=== PATIENT | female | born 1985 | race Caucasian/White ===

== ENCOUNTER 2016-11-30 15:52 | Emergency (ER) | payer OTHER ==
[2016-11-30 16:35] VITALS: BP 126/78
--- NOTE | 2016-11-30 17:06 | UC ---
Throat Pain/Nasal Raoul HPI - HPI Summary HPI Summary: Pt has had deep L ear pain starting 2+ months ago, is seeing Dr. Cheek for it. So far no indications of organic problem. Noticed worsening pain behind/ below L ear, feels a little swollen; looked in throat today and noticed "two spots on L tonsil and one on the R." Has school-aged child at home. - History of Current Complaint Chief Complaint: UCRespiratory Stated Complaint: WHITE SPOTS ON THROAT Time Seen by Provider: 11/30/16 16:44 Hx Obtained From: Patient Hx Last Menstrual Period: 11/25/16 ?: No Onset/Duration: Gradual Onset, Lasting Days Severity: Mild Cough: None Associated Signs & Symptoms: Negative: Nasal Discharge, Fever, Vomiting, Rash - Allergies/Home Medications Allergies/Adverse Reactions: Allergies Allergy/AdvReac Type Severity Reaction Status Date / Time No Known Allergies Allergy Verified 11/30/16 16:35 Home Medications: Home Medications NK [No Home Medications Reported] 11/30/16 [History Confirmed 11/30/16] PMH/Surg Hx/FS Hx/Imm Hx Endocrine History Of: Denies: Diabetes, Thyroid Disease Cardiovascular History Of: Denies: Cardiac Disorders, Hypertension, Pacemaker/ICD Respiratory History Of: Denies: COPD, Asthma GI/ History Of: Denies: Ulcer, Renal Disease - Surgical History Surgical History: Yes Surgery Procedure, Year, and Place: TONSILECTOMY,. LEEP SURGERY - Family History Known Family History: Positive: Hypertension - Social History Lives: With Family Alcohol Use: Occasionally Substance Use Type: None Smoking Status (MU): Former Smoker Length of Time of Smoking/Using Tobacco: 5 years When Did the Patient Quit Smoking/Using Tobacco: 7 years ago - Immunization History Most Recent Influenza Vaccination: sep 2016 Review of Systems Constitutional: Negative Skin: Negative Eyes: Negative ENT: Ear Ache Respiratory: Negative Cardiovascular: Negative Gastrointestinal: Negative Genitourinary: Negative Motor: Negative Neurovascular: Negative Musculoskeletal: Negative Neurological: Negative Psychological: Negative All Other Systems Reviewed And Are Negative: Yes Physical Exam Triage Information Reviewed: Yes Appearance: Well-Appearing, No Pain Distress, Well-Nourished Vital Signs: Initial Vital Signs Temp 98.9 F 11/30/16 16:27 Pulse 82 11/30/16 16:27 Resp 16 11/30/16 16:27 BP 126/78 11/30/16 16:27 Pulse Ox 100 11/30/16 16:27 Vital Signs Reviewed: Yes Eye Exam: Normal Eyes: Positive: Conjunctiva Clear ENT: Positive: Tonsillar exudate - very small white areas on both tonsils, not consistent with exudate. More consistent with debris.. Negative: Pharyngeal erythema Dental Exam: Normal Neck exam: Normal Neck: Positive: Supple, Nontender, No Lymphadenopathy Respiratory Exam: Normal Respiratory: Positive: Chest non-tender, Lungs clear, Normal breath sounds, No respiratory distress, No accessory muscle use Cardiovascular Exam: Normal Cardiovascular: Positive: RRR, No Murmur Musculoskeletal Exam: Normal Neurological Exam: Normal Psychological Exam: Normal Skin Exam: Normal Throat Pain/Nasal Course/Dx - Differential Dx/Diagnosis Provider Diagnoses: L ear ache Discharge - Discharge Plan Condition: Stable Disposition: HOME Patient Education Materials: Earache (ED) Referrals: Franc Campbell MD [Primary Care Provider] - Angel Cheek MD [Medical Doctor] - Additional Instructions: Rapid strep negative today. Please follow up with Dr. Cheek as directed to continue testing for your ear pain.
== END 2016-11-30 17:15 | disposition home or self-care (01) ==
LOC: UCEAST 15:52
DX: H92.02 Otalgia, left ear (principal); Z87.891 Personal history of nicotine dependence
CPT/HCPCS: 87651; 99211; G0463

== ENCOUNTER 2017-08-15 08:44 | Emergency (ER) | payer OTHER ==
[2017-08-15 09:13] VITALS: BP 105/56
--- NOTE | 2017-08-30 09:10 | UC ---
Cash Chowdary Thomas, scribed for Stephanie Shay DO on 08/15/17 at 0940 . Throat Pain/Nasal Raoul HPI - History of Current Complaint Hx Obtained From: Patient Hx Last Menstrual Period: 07/28/17 Onset/Duration: Lasting Weeks - 1, Still Present Pain Intensity: 5 Pain Scale Used: 0-10 Numeric Associated Signs & Symptoms: Positive: Nasal Discharge <Stephanie Shay - Last Filed: 08/15/17 09:38> - HPI Summary HPI Summary: Patient presents with one week onset complaints of sinus pain, pressure and thick yellow-green nasal discharge. She also complains of plugged ear, sore throat and generalized fatigue and malaise. She states she has been taking servere cold and sinus medications without any relief. She denies headache, fever, chills, chest pain, nausea, vomiting or diarrhea. - History of Current Complaint Associated Signs & Symptoms: Positive: Sinus Discomfort <Rachelle Shah - Last Filed: 08/15/17 10:17> - History of Current Complaint Chief Complaint: UCRespiratory Stated Complaint: SINUS ISSUE - Allergies/Home Medications Allergies/Adverse Reactions: Allergies Allergy/AdvReac Type Severity Reaction Status Date / Time No Known Allergies Allergy Verified 08/15/17 09:12 Home Medications: Home Medications Midodrine (NF) 2.5 mg PO DAILY 08/15/17 [History Confirmed 08/15/17] Multi Symptom Cold Medication 2 tab PO BID PRN 08/15/17 [History Confirmed 08/15] PMH/Surg Hx/FS Hx/Imm Hx Previously Healthy: Yes - NEGATIVE PMHX: DM, HTN - Surgical History Surgical History: Yes Surgery Procedure, Year, and Place: TONSILECTOMY,. LEEP SURGERY - Family History Known Family History: Positive: Hypertension - Social History Alcohol Use: Rare Substance Use Type: None Smoking Status (MU): Former Smoker Length of Time of Smoking/Using Tobacco: 5 years When Did the Patient Quit Smoking/Using Tobacco: 7 years ago - Immunization History Most Recent Influenza Vaccination: sep 2016 <Stephanie Shay - Last Filed: 08/15/17 09:38> - Social History Occupation: Employed Full-time Lives: With Family <Rachelle Shah - Last Filed: 08/15/17 10:17> Review of Systems ENT: Sore Throat, Nasal Discharge, Other - Nasal congestion Is Patient Immunocompromised?: No All Other Systems Reviewed And Are Negative: Yes <Stephanie Shay - Last Filed: 08/15/17 09:38> Constitutional: Negative Skin: Negative Eyes: Negative ENT: Negative Respiratory: Negative Cardiovascular: Negative Gastrointestinal: Negative Genitourinary: Negative Motor: Negative Neurovascular: Negative Musculoskeletal: Negative Neurological: Negative Psychological: Negative All Other Systems Reviewed And Are Negative: Yes <Rachelle Shah - Last Filed: 08/15/17 10:17> Physical Exam Triage Information Reviewed: Yes Appearance: Well-Appearing, No Pain Distress, Well-Nourished Vital Signs: Initial Vital Signs Temp 97.9 F 08/15/17 09:07 Pulse 67 08/15/17 09:07 Resp 16 08/15/17 09:07 BP 105/56 08/15/17 09:07 Pulse Ox 100 08/15/17 09:07 Vital Signs Reviewed: Yes Eyes: Positive: Conjunctiva Clear. Negative: Discharge ENT: Positive: Hearing grossly normal. Negative: Muffled voice Neck exam: Normal Neck: Positive: Supple Respiratory: Positive: Lungs clear, Normal breath sounds, No respiratory distress, No accessory muscle use Cardiovascular: Positive: RRR, No Murmur Musculoskeletal Exam: Normal Neurological: Positive: Alert, Muscle Tone Normal Psychological Exam: Normal Psychological: Positive: Age Appropriate Behavior Skin Exam: Normal Skin: Positive: Other - Warm, dry, normal color <Stephanie Shay - Last Filed: 08/15/17 09:38> Vital Signs: Initial Vital Signs Temp 97.9 F 08/15/17 09:07 Pulse 67 08/15/17 09:07 Resp 16 08/15/17 09:07 BP 105/56 08/15/17 09:07 Pulse Ox 100 08/15/17 09:07 ENT: Positive: Pharyngeal erythema, Nasal congestion, Nasal drainage, Sinus tenderness, Uvula midline <Rachelle Shah - Last Filed: 08/15/17 10:17> Throat Pain/Nasal Course/Dx - Course Course Of Treatment: Patient presents with one week onset progressively worsening sinus pain, pressure and discharge with tenderness to palpation over the maxillary and frontal sinuses. She has normal vital signs, nontoxic appearance, and is afebrile. She has been taking severe sinus cold medication with no improvement. She presents clincally with sinusitis and is going to be treated with Augmentin 500 mg by mouth twice daily for 10 days with understanding the if she has no improvement she will need to be re-evaluated either here or at her PCP. - Differential Dx/Diagnosis Differential Diagnosis/HQI/PQRI: Sinusitis Provider Diagnoses: sinusitis <Rachelle Shah - Last Filed: 08/15/17 10:17> Discharge <Stephanie Shay - Last Filed: 08/15/17 09:38> <Rachelle Shah - Last Filed: 08/15/17 10:17> - Discharge Plan Condition: Stable Disposition: HOME Prescriptions: Amoxicillin/Clavulanate TAB* [Augmentin TAB 500 mg*] 500 mg PO BID #20 tab Patient Education Materials: Sinusitis (ED) Referrals: Eagle Mckinley, ENGINEERING AIDE [Primary Care Provider] - Additional Instructions: If your symptoms do not improve in three days please follow up with your PCP, or return for re-evaluation. The documentation as recorded by the Cash krishnan Thomas accurately reflects the service I personally performed and the decisions made by , Stephanie Shay DO.
== END 2017-08-15 10:27 | disposition home or self-care (01) ==
LOC: UCEAST 08:44
DX: J32.9 Chronic sinusitis, unspecified (principal); Z87.891 Personal history of nicotine dependence
CPT/HCPCS: 99212; G0463

== ENCOUNTER 2017-10-25 09:01 | Emergency (ER) | payer OTHER ==
[2017-10-25 09:16] VITALS: BP 105/66
--- NOTE | 2017-10-25 09:56 | UC ---
Throat Pain/Nasal Raoul HPI - HPI Summary HPI Summary: 7 days of worsening sinus pain and congestion, fevers, - History of Current Complaint Chief Complaint: UCRespiratory Stated Complaint: COUGH,COLD Time Seen by Provider: 10/25/17 09:50 Hx Obtained From: Patient Hx Last Menstrual Period: 10/17/17 ?: No Onset/Duration: Sudden Onset, Lasting Days - 7, Still Present, Worse Since - getting worse daily Severity: Moderate Cough: Nonproductive Associated Signs & Symptoms: Positive: Sinus Discomfort, Nasal Discharge, Fever - Allergies/Home Medications Allergies/Adverse Reactions: Allergies Allergy/AdvReac Type Severity Reaction Status Date / Time No Known Allergies Allergy Verified 10/25/17 09:12 PMH/Surg Hx/FS Hx/Imm Hx Previously Healthy: Yes - Surgical History Surgical History: Yes Surgery Procedure, Year, and Place: TONSILECTOMY,. LEEP SURGERY - Family History Known Family History: Positive: Hypertension - Social History Occupation: Works From/At Home Lives: With Family Alcohol Use: Rare Substance Use Type: None Smoking Status (MU): Former Smoker Length of Time of Smoking/Using Tobacco: 5 years When Did the Patient Quit Smoking/Using Tobacco: 7 years ago - Immunization History Most Recent Influenza Vaccination: sep 2016 Review of Systems Constitutional: Fever, Chills, Fatigue Skin: Negative Eyes: Negative ENT: Ear Ache - pressure, Nasal Discharge, Sinus Congestion, Sinus Pain/ Tenderness Respiratory: Negative Cardiovascular: Negative Gastrointestinal: Negative Genitourinary: Negative Motor: Negative Neurovascular: Negative Musculoskeletal: Negative Neurological: Negative Psychological: Negative Is Patient Immunocompromised?: No All Other Systems Reviewed And Are Negative: Yes Physical Exam Triage Information Reviewed: Yes Appearance: Well-Appearing, No Pain Distress, Well-Nourished Vital Signs: Initial Vital Signs Temp 99.7 F 10/25/17 09:13 Pulse 73 10/25/17 09:13 Resp 16 10/25/17 09:13 BP 105/66 10/25/17 09:13 Pulse Ox 100 10/25/17 09:13 Vital Signs Reviewed: Yes Eye Exam: Normal Eyes: Positive: Conjunctiva Clear ENT Exam: Normal ENT: Positive: Normal ENT inspection, Hearing grossly normal, Pharynx normal, Nasal congestion, Nasal drainage, TMs normal, Sinus tenderness, Uvula midline. Negative: Tonsillar swelling, Tonsillar exudate, Trismus, Muffled voice, Hoarse voice, Dental tenderness Dental Exam: Normal Neck exam: Normal Neck: Positive: Supple, Nontender, No Lymphadenopathy Respiratory Exam: Normal Respiratory: Positive: Chest non-tender, Lungs clear, Normal breath sounds, No respiratory distress, No accessory muscle use Cardiovascular Exam: Normal Cardiovascular: Positive: RRR, No Murmur, Pulses Normal, Brisk Capillary Refill Musculoskeletal Exam: Normal Musculoskeletal: Positive: Strength Intact, ROM Intact, No Edema Neurological Exam: Normal Neurological: Positive: Alert, Muscle Tone Normal Psychological Exam: Normal Skin Exam: Normal Throat Pain/Nasal Course/Dx - Course Assessment/Plan: Flonase, decongestant, augmentin, increase fluids, follow pcp prn - Differential Dx/Diagnosis Provider Diagnoses: Acute rhinosinusitis Discharge - Discharge Plan Condition: Stable Disposition: HOME Prescriptions: Amoxicillin/Clavulanate TAB* [Augmentin TAB 875*] 875 mg PO BID #20 tab Fluticasone NASAL SPRAY 50MCG* [Flonase NASAL SPRAY 50MCG*] 2 spray BOTH NARES DAILY #1 btl Patient Education Materials: Sinusitis (ED), Nasal Rinse (ED), How to Use Nasal [place] (ED) Referrals: Eagle Mckinley, DIRECTOR OF BRAND MARKETING [Primary Care Provider] - If Needed
== END 2017-10-25 10:10 | disposition home or self-care (01) ==
LOC: UCEAST 09:01
DX: J01.90 Acute sinusitis, unspecified (principal); Z87.891 Personal history of nicotine dependence
CPT/HCPCS: 99212; G0463

== ENCOUNTER 2018-04-24 15:52 | Emergency (ER) | payer OTHER ==
--- OUTSIDE RECORDS SUMMARY | 2018-04-24 15:59 | XMS REPORT ---
:1985 External Reference #:[id number] Author Organization [facility] Address [address] [address] Phone [phone] Care Team Providers Name Role Phone Eagle Mckinley NP Primary Care Physician Unavailable Payers Type Date Identification Numbers Payment Provider Subscriber Commercial Policy Number: [id number] [employer]ed [employer] Name: [id number] [address] PayID: [id number] [place] [address] Workers Compensation Onset: 2016 Policy Number: [place] Cherise [id number] [facility] PayID: [facility] [address] [place] [address] Problems Date Description Provider Status Onset: 10/26/2016 Vertigo Eddy Cortes M.D. Active Onset: 10/26/2016 Diplopia Eddy Cortes M.D. Active Family History Date Family Member(s) Problem(s) Comments Father Hypertension Father Cancer Father Breast Cancer Mother Hypertension Siblings 2 Social History Type Date Description Comments Marital Status Single Lives With Daughters Occupation Currently Working aid at [employer] Cigarette Use Pack Years - 05 Cigarette Use Former Cigarette Smoker ETOH Use Rarely consumes alcohol Smoking Patient is a former smoker Recreational Drug Use Denies Drug Use Daily Caffeine Does Not Consume Caffeine Exercise Type/Frequency Exercises regularly walks, active at work, goes to the gym Allergies, Adverse Reactions, Alerts Date Description Reaction Status Severity Comments 08/31/2016 NKDA active Medications Medication Date Status Form Strength Qnty SIG Indications Ordering Provider Apap Extra 00/ Active Tablets 500mg Unknown Strength 0000 Lidocaine 04/19/ Hx Solution 2% 100uni gargle J02.9 Eagle Viscous 2017 - ts with 15ml MALISSA Mckinley 04/14/ every 4 2018 hours as needed for throat pain. Fluticasone 02/12/ Hx Suspension 50mcg/Act 16unit [place] 2 Eagle Propionate 2017 - s Sprays In Elías, [employer] FOR[employer] 04/14/ Each 2018 Nostril Every Day Azithromycin 12/24/ Hx Tablets 250mg 6tabs two tabs J03.90 Sandrine 2017 - day one, Varn, N.P. 01/03/ one daily 2017 till gone Fluticasone 12/24/ Hx Suspension 50mcg/Act 9.900m 2 sprays H92.02 Sandrine Propionate 2017 - l each Varn, N.P. 01/07/ nostril 2017 daily as needed Midodrine HCL 12/06/ Hx Tablets 2.5mg 30tabs Take 1 Qutaybeh 2017 - Tablet By S. 04/14/ Mouth Maghaydah, 2018 Once M.D. Daily Meclizine HCL 10/26/ Hx Tablets 12.5mg 60tabs 1-2 tab Eddy 2017 - two times Pachikara, 04/19/ a day M.D. 2016 (usually takes 1 po hs) No Active Unknown Medications 2015 - 2016 Hair Skin & / Hx Chewtabs 1250-7.5-7 1 po qd Unknown Nails Gummies 0000 - .5mcg-mg-U 2016 Fat Jose / Hx Tablets Unknown Plus 0000 - 2016 Immunizations CPT Code Status Date Vaccine Reaction Lot # [id number] Given 08/31/2016 Influenza Virus Vaccine, no immediate reaction [id number] Quadrivalent, Split noted ... hh Virus, Im Use Vital Signs Date Vital Result Comment 04/14/2018 Height 65 inches 5'5" Weight 141.00 lb Heart Rate 61 /min BP Systolic Sitting 92 mmHg BP Diastolic Sitting 62 mmHg Respiratory Rate 14 /min Pain Level 3 BMI (Body Mass Index) 23.5 kg/m2 07/10/2017 Height 65 inches 5'5" Weight 133.00 lb Heart Rate 57 /min BP Systolic Sitting 118 mmHg BP Diastolic Sitting 80 mmHg Respiratory Rate 14 /min Pain Level 2 BMI (Body Mass Index) 22.1 kg/m2 06/20/2017 Height 65 inches 5'5" Weight 137.00 lb Heart Rate 61 /min BP Systolic 126 mmHg BP Diastolic 66 mmHg O2 % BldC Oximetry 99 % BMI (Body Mass Index) 22.8 kg/m2 06/04/2017 Height 65 inches 5'5" Weight 137.12 lb Heart Rate 60 /min BP Systolic Sitting 92 mmHg BP Diastolic Sitting 64 mmHg Respiratory Rate 14 /min Pain Level 5 BMI (Body Mass Index) 22.8 kg/m2 04/19/2017 Weight 134.00 lb Heart Rate 80 /min BP Systolic Sitting 98 mmHg BP Diastolic Sitting 70 mmHg Body Temperature 98.1 F O2 % BldC Oximetry 98 % 04/12/2017 Weight 134.50 lb Heart Rate 68 /min BP Systolic 118 mmHg BP Diastolic 60 mmHg Body Temperature 97.7 F O2 % BldC Oximetry 99 % 01/11/2017 Weight 136.00 lb Heart Rate 84 /min BP Systolic Sitting 102 mmHg BP Diastolic Sitting 58 mmHg Body Temperature 96.9 F O2 % BldC Oximetry 98 % 01/07/2017 Height 65 inches 5'5" Weight 133.00 lb Heart Rate 80 /min BP Systolic Sitting 98 mmHg LA reg cuff BP Diastolic Sitting 62 mmHg LA reg cuff BMI (Body Mass Index) 22.1 kg/m2 Ejection Fraction 55% - 60% echo 12/24/16 12/24/2016 Weight 133.00 lb Heart Rate 91 /min BP Systolic Sitting 94 mmHg BP Diastolic Sitting 66 mmHg Body Temperature 98.8 F O2 % BldC Oximetry 95 % 12/13/2016 Height 65 inches 5'5" Weight 134.50 lb Heart Rate 58 /min BP Systolic 100 mmHg BP Diastolic 60 mmHg Body Temperature 98.4 F O2 % BldC Oximetry 96 % BMI (Body Mass Index) 22.4 kg/m2 12/06/2016 Height 65 inches 5'5" Weight 134.75 lb Heart Rate 64 /min BP Systolic Sitting 108 mmHg LA reg cuff BP Diastolic Sitting 78 mmHg LA reg cuff BMI (Body Mass Index) 22.4 kg/m2 11/01/2016 Weight 133.00 lb Heart Rate 64 /min BP Systolic Sitting 104 mmHg BP Diastolic Sitting 60 mmHg Respiratory Rate 15 /min Body Temperature 97.9 F O2 % BldC Oximetry 98 % 10/25/2016 Weight 134.00 lb Heart Rate 80 /min BP Systolic Sitting 100 mmHg BP Diastolic Sitting 64 mmHg Body Temperature 98.7 F O2 % BldC Oximetry 97 % 08/31/2016 Height 65.5 inches 5'5.50" Weight 131.50 lb Heart Rate 56 /min BP Systolic Sitting 100 mmHg BP Diastolic Sitting 60 mmHg Body Temperature 98.5 F O2 % BldC Oximetry 98 % BMI (Body Mass Index) 21.5 kg/m2 Results Test Date Test Result H/L Range Note Laboratory test finding 06/04/2017 Angiotensin Converting 41 U/L 8 - 53 1 Enzyme Rheumatoid Factor <15 IU/mL <15 2 Cyclic Citrullinated Pep Igg <15.6 U 3 Tata Igg AB Reflex 06/04/2017 SS-A/Ro Antibody <0.2 U 4 SS-B/La Antibody <0.2 U 5 Sm (Lowry) IgG Antibody <0.2 U 6 U1-nRNP Antibody 0.5 U 7 Scl-70 (Scleroderma) Antibody <0.2 U 8 Mel-1 Antibody <0.2 U 9 Celiac Panel 06/04/2017 Tissue Transglutaminase IgA Ab <1.2 U/mL 10 Immunoglobulin A 309 mg/dL 61 - 356 Celiac Interpretation See Comment 11 Celiac Hla DQ1/DQ2 06/04/2017 Hla-Dqa1 SEE BELOW 12 Hla-DQB1 SEE BELOW 13 Celiac Gene Pairs Present? Yes Celiac Gene Interpretation See Comment 14 Hla B27 06/04/2017 Hla B27 Negative 15 Hla B27 Interp See Comment 16 Anca AB Ser If 06/04/2017 C-Anca Negative Negative P-Anca Negative Negative 17 Laboratory test finding 06/04/2017 Complement C3 92 mg/dL 75 - 175 18 Complement C4 19 mg/dL 14 - 40 19 T3 Free 2.60 pg/mL 2.5-3.9 20 Free Cortisol Serum 0.15 g/dL 21 Creatine Kinase(CK) 61 U/L 10-223 22 Anti Double Stranded Dna AB <12.3 IU/mL 23 Cardiolipin Igg/Igm 06/04/2017 Phospholipid Ab IgM, S < 9.4 MPL 24 Phospholipid Ab IgG < 9.4 GPL 25 Laboratory test 04/19/2017 Culture Throat SEE RESULT BELOW 26 finding Laboratory test 04/12/2017 TSH (Thyroid Stim 1.98 mcIU/mL 0.34-5.60 finding Horm) Vitamin B12 367 pg/mL 180-914 27 Nuclear Ab (Magdalene) by Ifa, IgG Positive 1:320 28 Urinalysis Profile 04/12/2017 Urine Color Yellow Urine Appearance Clear Urine Specific Beulah 1.016 1.010-1.030 Urine pH 5.0 5-9 Urine Urobilinogen Negative Negative Urine Ketones Negative Negative Urine Protein Negative Negative Urine Leukocytes Negative Negative Urine Blood Negative Negative Urine Nitrite Negative Negative Urine Bilirubin Negative Negative Urine Glucose Negative Negative Laboratory test finding 04/12/2017 Lyme Disease Serology Negative Negative 29 Rheumatoid Factor <15 IU/mL <15 30 Erythrocyte Sed Rate 12 mm/Hr 0-14 C Reactive Protein 1.66 mg/L < 5.00 31 Nuclear AB (Magdalene) By Ifa Igg 04/12/2017 Magdalene Titer: 1:320 Magdalene Pattern: Speckled 32 CBC Auto Diff 04/12/2017 White Blood Count 8.3 10^3/uL 3.5-10.8 Red Blood Count 4.25 10^6/uL 4.0-5.4 Hemoglobin 12.8 g/dL 12.0-16.0 Hematocrit 40 % 35-47 Mean Corpuscular Volume 93 fL 80-97 Mean Corpuscular Hemoglobin 30 pg 27-31 Mean Corpuscular HGB Conc 32 g/dL 31-36 Red Cell Distribution Width 14 % 10.5-15 Platelet Count 240 10^3/uL 150-450 Mean Platelet Volume 9 um3 7.4-10.4 Abs Neutrophils 5.3 10^3/uL 1.5-7.7 Abs Lymphocytes 2.0 10^3/uL 1.0-4.8 Abs Monocytes 0.7 10^3/uL 0-0.8 Abs Eosinophils 0.2 10^3/uL 0-0.6 Abs Basophils 0.1 10^3/uL 0-0.2 Abs Nucleated RBC 0.01 10^3/uL Granulocyte % 64.3 % 38-83 Lymphocyte % 23.6 % Low 25-47 Monocyte % 8.8 % 1-9 Eosinophil % 2.5 % 0-6 Basophil % 0.8 % 0-2 Nucleated Red Blood Cells % 0.1 Comp Metabolic Panel 04/12/2017 Sodium 136 mmol/L 133-145 Potassium 3.8 mmol/L 3.5-5.0 Chloride 105 mmol/L 101-111 Co2 Carbon Dioxide 26 mmol/L 22-32 Anion Gap 5 mmol/L 2-11 Glucose 76 mg/dL 70-100 Blood Urea Nitrogen 11 mg/dL 6-24 Creatinine 0.64 mg/dL 0.51-0.95 BUN/Creatinine Ratio 17.2 8-20 Calcium 9.2 mg/dL 8.6-10.3 Total Protein 7.1 g/dL 6.4-8.9 Albumin 4.3 g/dL 3.2-5.2 Globulin 2.8 g/dL 2-4 Albumin/Globulin Ratio 1.5 1-3 Total Bilirubin 0.40 mg/dL 0.2-1.0 Alkaline Phosphatase 66 U/L 34-104 Alt 9 U/L 7-52 Ast 12 U/L Low 13-39 Egfr Non- 109.7 >60 Egfr 141.1 >60 33 Laboratory test finding 12/24/2016 Culture Throat SEE RESULT BELOW 34 Laboratory test finding 12/24/2016 Rapid Group A Strep neg 1 Test Performed by: [facility] - [address] [address] 2 Test Performed by: [facility] - [address] [address] 3 REFERENCE VALUE <20.0 (Negative) Test Performed by: [facility] - [address] [place] [address] 4 REFERENCE VALUE <1.0 (Negative) 5 REFERENCE VALUE <1.0 (Negative) 6 REFERENCE VALUE <1.0 (Negative) 7 REFERENCE VALUE <1.0 (Negative) 8 REFERENCE VALUE <1.0 (Negative) 9 REFERENCE VALUE <1.0 (Negative) Test Performed by: [place] [address] 10 REFERENCE VALUE <4.0 (Negative) Test Performed by: [place] [address] 11 Negative serology. Celiac disease unlikely. However, approximately 10% of patients with celiac disease are seronegative. Also, patients who are already adhering to a gluten-free diet may be seronegative. If celiac disease is highly clinically suspected, consider HLA-DQ typing. Test Performed by: [facility] [place] [address] 12 RESULT: 05:01,05 REFERENCE VALUE Not Applicable 13 RESULT: 02:01,03:01 DQ Serologic Equivalent: 2,7 REFERENCE VALUE Not Applicable 14 These genes are permissive for celiac disease. The absence of HLA celiac permissive genes would make the presence of celiac disease unlikely. However, these genes can also be present in the normal population. ADDITIONAL INFORMATION Method: Molecular typing of HLA antigens performed using reverse SSOP and/or SSP methods, reported as serological equivalents and low to medium resolution molecular values. Performing Laboratory CLIA# [id number] Test Performed by: [facility] - [address] [address] 15 REFERENCE VALUE Not Applicable 16 RESULT: HLA-B27 antigen was not detected. ADDITIONAL INFORMATION Method: Flow Cytometry Performing Laboratory CLIA# [id number] Test Performed by: [place] [address] 17 Negative for cANCA and pANCA patterns by immunofluorescence. ADDITIONAL INFORMATION This test was developed and its performance characteristics determined by [facility] in a manner consistent with CLIA requirements. This test has not been cleared or approved by the U.S. Food and Drug Administration. Test Performed by: [place] [address] 18 Test Performed by: [place] [address] 19 Test Performed by: [place] [address] 20 Please check this week 21 Adult Reference Ranges for Cortisol, Free, LC/MS/MS: 8:00 - 10:00 AM 0.07-0.93 mcg/dL 4:00 - 6:00 PM 0.04-0.45 mcg/dL 10:00 - 11:00 PM 0.04-0.35 mcg/dL This test was developed and its analytical performance characteristics have been determined by [facility]. It has not been cleared or approved by FDA. This assay has been validated pursuant to the CLIA regulations and is used for clinical purposes. Test Performed by: [facility] [place] [address] [facility] [address] 22 Please check this week 23 REFERENCE VALUE <30.0 (Negative) Test Performed by: [address] [address] 24 REFERENCE VALUE <15.0 (Negative) 25 REFERENCE VALUE <15.0 (Negative) Test Performed by: [address] [address] 26 SEE RESULT BELOW Name: CHERISE HURD : [address]: Eagle Mckinley NP Acct: [id number] Unit: [id number] AGE: 31 Location: [facility] Re04/19/17 SEX: F Status: REG REF SPEC: [id number] LAEH: 04/19/17-[address]: Eagle Mckinley NP REQ: [id number] RECD: 04/19/17 STATUS: COMP _ SOURCE: THROAT SPDESC: ORDERED: Throat Culture COMMENTS: [id number] Procedure Result Reported Site Throat Culture Final 04/21/17- 1114 ML Organism 1 NORMAL AGUSTIN Quantity 3+ Throat cultures are clinically indicated to detect the presence of group A strep, arcanobacterium and yeast. In certain cases, predominating organisms will be reported. * ML - [facility] ([facility]) . END OF REPORT * ML=Testing performed at Main Lab DEPARTMENT OF PATHOLOGY, [address] [place] [address] Royer Mena M.D. Director [facility] # [id number] 27 Normal Range 180 to 914 Indeterminate Range 145 to 180 Deficient Range <145 28 REFERENCE VALUE <1:80 (Negative) 29 Serologic response to B. burgdorferi infection is not detected, but cannot rule out early infection during which low or undetectable antibody levels to B. burgdorferi may be present. If clinically indicated, a new serum specimen should be submitted in 7-14 days. Test Performed by: [facility] - [facility] [address] [place] [address] 30 Test Performed by: [facility] [address] [place] [address] 31 Acute inflammation: >10.00 32 Test Performed by: [place] [address] 33 Because ethnic data is not always readily available, this report includes an eGFR for both -Americans and non- Americans. The National Kidney Disease Education Program (NKDEP) does not endorse the use of the MDRD equation for patients that are not between the ages of 18 and 70, are , have extremes of body size, muscle mass, or nutritional status, or are non- or non-. According to the National Kidney Foundation, irrespective of diagnosis, the stage of the disease is based on the level of kidney function: Stage Description GFR(mL/min/1.73 m(2)) 1 Kidney damage with normal or decreased GFR 90 2 Kidney damage with mild decrease in GFR 60-89 3 Moderate decrease in GFR 30-59 4 Severe decrease in GFR 15-29 5 Kidney failure <15 (or dialysis) 34 SEE RESULT BELOW Name: CHERISE HURD : [address]: Sandrine Jimenez NP Acct: [id number] Unit: [id number] AGE: 31 Location: [facility] Re12/24/16 SEX: F Status: REG REF SPEC: [id number] LEAH: 12/24/16-[address]: Sandrine Jimenez NP REQ: [id number] RECD: 12/24/16 STATUS: COMP _ SOURCE: THROAT SPDESC: ORDERED: Throat Culture COMMENTS: [id number] Procedure Result Reported Site Throat Culture Final 12/26/16- 1214 ML Organism 1 STREP GROUP A Quantity 1+ Organism 2 NORMAL AGUSTIN Quantity 3+ Susceptibility testing of penicillins and other B-lactams approved by FDA for treatment of Streptococcus pyogenes (Group A Strep) and Streptococcus agalactiae (Group B Strep) is not necessary for clinical purposes and need not be done routinely, since as with vancomycin, resistant strains have not been recognized. (CLSI M333-G48;p.66) Positive isolates will be saved for one week. Please call the Microbiology Laboratory if further susceptibility testing is needed. * ML - MAIN LAB ([facility]) . END OF REPORT * ML=Testing performed at Main Lab DEPARTMENT OF PATHOLOGY, [address] [place] [address] Royer Mena M.D. Director [facility] # [id number] Procedures Date CPT Code Description Status 01/01/2017 62559 ECHO Stress Test Incl Perf Contiuous ekg Monitoring Completed W/Phys Superv 12/24/2016 31830 ECHO Transthoracic, Real-Time 2D With Doppler And Color Completed Flow 12/24/2016 35729 ECHO Transthoracic, Real-Time 2D With Doppler And Color Completed Flow 12/24/2016 24824 Holter Monitor Review (24 hr)dr review & interp only Completed 12/20/2016 63491 ECG Monitor/Recording W/Visual Superimposition Scanning Completed 12/06/2016 45539 EKG Tracing & Interpretation Completed Encounters Type Date Location Provider CPT E/M Dx Office Visit 07/10/2017 Rhe[facility]ology Services Angel Ortiz M.D. 13142 R76.0 11:20a Of [facility] R21 M54.2 Office Visit 06/20/2017 11:40a [facility] [place] [address] Z71.89 [place] Office Visit 06/04/2017 10:00a [facility] Of Angel Ortiz 35146 R76.0 Jennifer Miller R21 R22.43 R22.33 R42 R53.83 J01.90 M54.2 M54.6 M22.2x9 Office Visit 04/19/2017 11:00a [facility] [place] [address] J02.9 [place] Office Visit 04/12/2017 8:40a [facility] [place] [address] R42 Vince R53.83 R60.0 R21 Office Visit 01/11/2017 8:40a [facility] [place] [address] R42 - [place] Office Visit 01/07/2017 8:20a [facility] [place] [address] R55 Angela Bautista Office Visit 12/24/2016 11:00a [facility] Internal Medicine Sandrine Jimenez N.[place]. [address] J03.90 - Vince H92.02 R07.0 Office Visit 12/13/2016 8:40a [facility] Internal Medicine - Eagle Mckinley, MALISSA [address] R42 Vince Office Visit 12/06/2016 10:20a [facility] S. [address] R42 Angela Bautista R55 Z87.891 F15.90 R94.31 Office Visit 11/01/2016 10:20a [facility] Internal Medicine - Franc Campbell, [address] R42 Sandy Miller H53.2 Office Visit 10/25/2016 4:00p [facility] Internal [facility], [address] H81.43 Medicine - Tbblanche Gaffney M.D. H53.2 Office Visit 08/31/2016 10:00a [facility] Internal Medicine Franc Campbell, [address] M54.5 - Vince Miller Plan of Care Future Appointment(s):07/15/2018 9:20 am - Angel Ortiz M.D. at [facility]04/14/2018 - Angel Ortiz M.D.R20.8 Other disturbances of skin sensationNew Orders:EMG w/Nerve Conduct Study, LowerFollow up:FOllow up in 3 months or sooner if needed
[2018-04-24 16:03] VITALS: BP 112/77
--- NOTE | 2018-04-24 16:39 | UC ---
Dental HPI - HPI Summary HPI Summary: This is ariella Cisneros documenting for attending Lise Garzon MD. This patient is a 32 year old MF presenting to [facility] with a chief complaint of right dental pain that began on 04/20/2018. The patient rates the pain 9/10 in severity. Symptoms aggravated by nothing. Pain alleviated by ibuprofen and acetaminophen. Patient reports swelling in right cheek, sensation of a mass with pressure in R cheek, drainage, and bad taste in mouth. Patient denies chills, ear pain, and difficulty swallowing. She reports that she had 3 teeth removed on 04/18/2018, and was given on amoxicillin. Medications reviewed this visit. Ptt states called dentist - has appt next week - History of Current Complaint Chief Complaint: UCDentalProblem Stated Complaint: DENTAL Time Seen by Provider: 04/24/18 16:23 Hx Obtained From: Patient Hx Last Menstrual Period: 03/30/18 ?: No Onset/Duration: Sudden Onset, Lasting Days, Still Present Severity: Severe Pain Intensity: 9 Pain Scale Used: 0-10 Numeric Aggravating Factor(s): Nothing Alleviating Factor(s): OTC Meds Related History: Previous Dental Care on Same Tooth - Allergies/Home Medications Allergies/Adverse Reactions: Allergies Allergy/AdvReac Type Severity Reaction Status Date / Time No Known Allergies Allergy Verified 04/24/18 16:03 PMH/Surg Hx/FS Hx/Imm Hx Previously Healthy: Yes Endocrine History: Other Other Endocrine History: Negative diabetes Cardiovascular History: Other Other Cardiovascular History: Negative HTN - Surgical History Surgical History: Yes Surgery Procedure, Year, and Place: TONSILECTOMY,. LEEP SURGERY - Family History Known Family History: Positive: Hypertension - Mother, Diabetes - Grandfather - Social History Occupation: Employed Full-time Lives: With Family Alcohol Use: Rare Substance Use Type: None Smoking Status (MU): Former Smoker Length of Time of Smoking/Using Tobacco: 5 years When Did the Patient Quit Smoking/Using Tobacco: 7 years ago - Immunization History Most Recent Influenza Vaccination: sep 2016 Review of Systems Constitutional: Other - Negative chills ENT: Dental Pain, Other - Positive swelling in right cheek, sensation of a mass with pressure in R cheek, drainage, and bad taste in mouth. Negative ear pain and difficulty swallowing All Other Systems Reviewed And Are Negative: Yes Physical Exam - Summary Physical Exam Summary: Vital Signs Reviewed: Yes A+Ox3, no distress Eyes: Conjunctiva Clear, DWIGHT. EOM intact and full ENT: Hearing grossly normal TM x 2 clear, mmoist, uvula mid line, no exudate, no erythema Dental #1 tooth with edema fullness noted buccal membrane adjacent to tooth Fullness and tender with palpation right parotid area no warmth, no fluctuance mild trismus Neck: Positive: Supple Respiratory: Positive: No respiratory distress, No accessory muscle use + CTA throughout no w/r Cardiovascular: RRR nl s1, s2 no m/r CBT <2 sec abd soft + BS nt/nd no guarding, no distension Musculoskeletal Exam: VILCHIS x 4 without difficulty Strength Intact, ROM Intact Neurological: Positive: Alert, + sensation throughout Psychological: Positive: Normal Response To Family Skin: Positive: no rash, no ecchymosiss Triage Information Reviewed: Yes Vital Signs: Initial Vital Signs Temp 98.0 F 04/24/18 15:57 Pulse 65 04/24/18 15:57 Resp 18 04/24/18 15:57 BP 112/77 04/24/18 15:57 Pulse Ox 99 04/24/18 15:57 Dental Complaint Course/Dx - Course Course Of Treatment: pt with right facial edema, tenderness following tooth extraction. Progressive edema. Pt is taking amox. described bad taste in mouth. pt with fullness buccal membraneand right face + trismus. d/w Dr. Kovacs - recommend CT with iv enhancement - d/w pt - will send to ED for CT imaging. Pt to remain NPO. report given to DAVIS Bear in ED. pt in agreement with plan - Differential Dx/Diagnosis Provider Diagnoses: facial edema. dental abscess - Physician Notification/Consults Discussed Patient Care With: Mike Kovacs Time Discussed With Above Provider: 16:45 Instructed by Provider To: Other - Consult with Dr. Kovacs (radiology) at 1645. He recommends a CT with contrast. Consult with Natalia JOE) at 1650. Discussed the plan to recommend the pt to the ED. Discharge - Sign-Out/Discharge Documenting (check all that apply): Patient Departure - Recommended to ED - Discharge Plan Condition: Stable Disposition: HOME-RECOMMEND TO ED Patient Education Materials: Dental Abscess (ED) Referrals: Eagle Mckinley RETAIL ZONE SPECIALIST [Primary Care Provider] - Additional Instructions: The doctor that evaluated you today thinks that you need additional testing that can be completed the emergency department. It is recommended that you go directly to emergency department for further evaluation. This evaluation may include blood work and imaging. This testing will be directed and decided by the provider that evaluates you at the emergency department. The emergency department is aware you will be coming for evaluation. It is recommended you do not eat or drink anything until you are further evaluated - Billing Disposition and Condition Condition: STABLE Disposition: Home-Recommend to ED
== END 2018-04-24 16:58 | disposition home health service (06) ==
LOC: UCEAST 15:52
DX: K08.89 Other specified disorders of teeth and supporting structures (principal); Z87.891 Personal history of nicotine dependence
CPT/HCPCS: 99212; G0463

== ENCOUNTER 2018-04-24 17:31 | Emergency (ER) | payer OTHER ==
[2018-04-24] MEDS ORDERED: Clindamycin CAP* 150 MG PO ONE (23:34)
--- NOTE | 2018-04-24 23:54 | ED ---
Throat Pain/Nasal Congestion - HPI Summary HPI Summary: This is scribe Deaconalfonso Velasquez documenting for attending Dr. Rock Lora MD. A 32 y/o female presents to the ED c/o swelling/pain on her right side. According to the patient, she had oral surgery on 04/18/2018 which is where 3 wisdom teeth were removed (2 on right, 1 on left). She noted that the surgery went fine and she expected swelling (started right after surgery). She stated that the right sided swelling did not go away and it kept growing. She stated that her left-side is fine and her extractions do not her, but her cheek. Pt denies any chills or fever. Additionally, her right cheek is painful. She called the dentist, however he stated that it is just a hematoma and should not worry, but she did not agree. She was prescribed and is currently taking Amoxicillin 3 times a day since Saturday. She was also prescribed hydrocodone and took 2 doses but did not like it so she stopped taking the medication. Instead, she has been taking Ibuprofen and Tylenol which still did not alleviate the symptoms. - History of Current Complaint Chief Complaint: EDGeneral Time Seen by Provider: 04/24/18 23:26 Hx Obtained From: Patient Onset/Duration: Gradual Onset, Lasting Days, Worse Since - Growing and painful - Allergies/Home Medications Allergies/Adverse Reactions: Allergies Allergy/AdvReac Type Severity Reaction Status Date / Time No Known Allergies Allergy Verified 04/24/18 16:03 PMH/Surg Hx/FS Hx/Imm Hx Endocrine/Hematology History: Denies: Hx Diabetes, Hx Thyroid Disease Cardiovascular History: Denies: Hx Hypertension, Hx Pacemaker/ICD Respiratory History: Denies: Hx Asthma, Hx Chronic Obstructive Pulmonary Disease (COPD) GI History: Denies: Hx Ulcer History: Denies: Hx Renal Disease Sensory History: Denies: Hx Hearing Aid Psychiatric History: Denies: Hx Panic Disorder - Surgical History Surgery Procedure, Year, and Place: TONSILECTOMY,. LEEP SURGERY Infectious Disease History: No Infectious Disease History: Denies: Hx Clostridium Difficile, Hx Hepatitis, Hx Human Immunodeficiency Virus (HIV), Hx of Known/Suspected MRSA, Hx Shingles, Hx Tuberculosis, Hx Known/ Suspected VRE, Hx Known/Suspected VRSA, History Other Infectious Disease, Traveled Outside the [place] in Last 30 Days - Family History Known Family History: Positive: Hypertension - Mother, Diabetes - Grandfather - Social History Alcohol Use: Rare Substance Use Type: Reports: None Smoking Status (MU): Former Smoker Length of Time of Smoking/Using Tobacco: 5 years Review of Systems Negative: Fever, Chills Positive: Other - POSITIVE: Right cheek pain. All Other Systems Reviewed And Are Negative: Yes Physical Exam - Summary Physical Exam Summary: Appearance: Well-appearing, Well-nourished, lying in bed comfortably Skin: Warm, dry, no obvious rash. Right upper maxillary swelling. Period draining from extraction. Eyes: sclera anicteric, no conjunctival pallor ENT: mucous membranes moist, pharynx appears normal Neck: Supple, nontender Respiratory: Clear to auscultation, no signs of respiratory distress Cardiovascular: Normal S1, S2. No murmurs. Normal distal pulses in tibial and radial bilaterally. Abdomen: Soft, nontender, normal active bowel sounds present Musculoskeletal: Normal, Strength/ROM Intact Neurological: A&Ox3, awake and alert, mentation is normal, speech is fluent and appropriate Psychiatric: affect is normal, does not appear anxious or depressed Triage Information Reviewed: Yes Vital Signs On Initial Exam: Initial Vitals Temp Pulse Resp BP Pulse Ox 99.1 F 64 16 149/74 99 04/24/18 17:51 04/24/18 17:51 04/24/18 17:51 04/24/18 17:51 04/24/18 17:51 Vital Signs Reviewed: Yes Diagnostics - Vital Signs Vital Signs Temp Pulse Resp BP Pulse Ox 04/24/18 23:00 98.8 F 55 16 108/72 100 04/24/18 22:01 99.1 F 61 16 139/89 98 04/24/18 19:54 99.1 F 61 16 139/89 98 04/24/18 17:51 99.1 F 64 16 149/74 99 - Laboratory Lab Statement: Any lab studies that have been ordered have been reviewed, and results considered in the medical decision making process. EENT Course/Dx - Diagnoses Provider Diagnoses: Dental abscess Discharge - Sign-Out/Discharge Documenting (check all that apply): Patient Departure - DISCHARGE - Discharge Plan Condition: Good Disposition: HOME Prescriptions: Clindamycin Cap(NF) [Clindamycin Cap 300 mg Cap(NF)] 300 mg PO TID #30 cap Patient Education Materials: Dental Abscess (ED) Referrals: Eagle Mckinley NP [Primary Care Provider] - 2 Days (FOLLOW UP WITH PCP IN 2-3 DAYS. ) Additional Instructions: Contact your oral surgeon for further instructions if this does not start improving over the next 48 hours. The drainage is actually a good thing. RETURN TO ED FOR ANY NEW OR WORSENING SYMPTOMS. - Billing Disposition and Condition Condition: GOOD Disposition: Home
[2018-04-25 00:29] VITALS: BP 114/72
== END 2018-04-25 00:26 | disposition home or self-care (01) ==
LOC: ED 17:31
DX: K04.7 Periapical abscess without sinus (principal); K08.409 Partial loss of teeth, unspecified cause, unspecified class; Z82.49 Family history of ischemic heart disease and other diseases of the circulatory system; Z83.3 Family history of diabetes mellitus; Z87.891 Personal history of nicotine dependence
CPT/HCPCS: 99282; A9270-GY

== ENCOUNTER 2019-11-17 13:09 | Emergency (ER) | payer OTHER ==
[2019-11-17 13:28] VITALS: BP 120/72
--- NOTE | 2019-11-17 13:51 | UC ---
FLU HPI - HPI Summary HPI Summary: 2 DAYS AGO PATIENT'S CHILD SWABBED POSITIVE FOR THE FLU. THE NEXT DAY ( YESTERDAY) PATIENT DEVELOPED SYMPTOMS INCLUDING FEVER, COUGH, NASAL CONGESTION, SORE THROAT, HEADACHE AND BODY ACHES. TMAX 101. IS CURRENTLY TAKING TAMIFLU. 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 - History of Current Complaint Chief Complaint: UCGeneralIllness Stated Complaint: COUGH RUNNY NOSE BODYACHES FEVER Time Seen by Provider: 11/17/19 13:36 Hx Obtained From: Patient Hx Last Menstrual Period: 03/30/18 Onset/Duration: Gradual Onset, Lasting Days - 1 DAY, Still Present Severity Currently: Moderate Severity Initially: Moderate Pain Intensity: 3 Pain Scale Used: 0-10 Numeric Associated Signs & Symptoms: Positive: Fever, Myalgia, Cough, Sore Throat, Nasal Congestion, Headache - Allergy/Home Medications Allergies/Adverse Reactions: Allergies Allergy/AdvReac Type Severity Reaction Status Date / Time No Known Allergies Allergy Verified 11/17/19 13:22 PMH/Surg Hx/FS Hx/Imm Hx Previously Healthy: Yes - Surgical History Surgical History: Yes Surgery Procedure, Year, and Place: TONSILECTOMY,. LEEP SURGERY - Family History Known Family History: Positive: Hypertension - Mother, Diabetes - Grandfather - Social History Alcohol Use: Rare Substance Use Type: None Smoking Status (MU): Former Smoker Length of Time of Smoking/Using Tobacco: 5 years When Did the Patient Quit Smoking/Using Tobacco: 7 years ago - Immunization History Most Recent Influenza Vaccination: sep 2016 Review of Systems All Other Systems Reviewed And Are Negative: Yes Constitutional: Positive: Fever, Chills, Fatigue ENT: Positive: Sore Throat, Nasal Discharge Respiratory: Positive: Cough Cardiovascular: Positive: Negative Gastrointestinal: Positive: Negative Musculoskeletal: Positive: Myalgia Neurological/Mental Status: Positive: Headache Physical Exam Triage Information Reviewed: Yes Appearance: Well-Appearing, No Pain Distress, Well-Nourished Vital Signs: Initial Vital Signs Temp 98.9 F 11/17/19 13:22 Pulse 90 11/17/19 13:22 Resp 18 11/17/19 13:22 BP 120/72 11/17/19 13:22 Pulse Ox 88 11/17/19 13:22 Laboratory Tests 11/17/19 13:45 Influenza A (Rapid) Negative Influenza B (Rapid) Negative Vital Signs Reviewed: Yes Eyes: Positive: Conjunctiva Clear ENT: Positive: Hearing grossly normal, Pharynx normal, TMs normal Neck: Positive: Supple, Nontender, No Lymphadenopathy Respiratory Exam: Normal Cardiovascular Exam: Normal Abdomen Description: Positive: Soft Musculoskeletal: Positive: No Edema Neurological: Positive: Alert Psychological: Positive: Age Appropriate Behavior Skin: Negative: Rashes Flu Course/Dx - Course Course Of Treatment: FLU NEGATIVE. PATIENT'S SYMPTOMS ARE LIKELY VIRALLY MEDIATED AND SHOULD RESOLVE ON THEIR OWN WITH TIME. SHE ALREADY HAS TAMIFLU ONBOARD. ADVISED SHE MAY CONTINUE THIS. REST, HYDRATE, OTC MEDS NEEDED. FOLLOW-UP IF NOT IMPROVING EXPECTED. - Differential Dx/Diagnosis Provider Diagnosis: Upper respiratory infection Discharge ED - Sign-Out/Discharge Documenting (check all that apply): Patient Departure All imaging exams completed and their final reports reviewed: No Studies - Discharge Plan Condition: Stable Disposition: HOME Patient Education Materials: Upper Respiratory Infection (ED) Forms: *Work Release Referrals: Eagle Mckinley, [facility] [Primary Care Provider] - If Needed Additional Instructions: FLU NEGATIVE. YOUR SYMPTOMS ARE LIKELY VIRALLY MEDIATED AND SHOULD RESOLVE ON THEIR OWN WITH TIME. NO INDICATION FOR ANTIBIOTICS AT PRESENT. REST, HYDRATE, OTC MEDS NEEDED. CONTINUE YOUR TAMIFLU. SEEK FOLLOW-UP IF YOU ARE NOT IMPROVING OVER THE NEXT 1-2 WEEKS. - Billing Disposition and Condition Condition: STABLE Disposition: Home
[2019-11-17 13:57] LABS: Influenza A Molecular Negative (Negative); Influenza B Molecular Negative (Negative)
== END 2019-11-17 14:16 | disposition home or self-care (01) ==
LOC: UCEAST 13:09
DX: J06.9 Acute upper respiratory infection, unspecified (principal); Z87.891 Personal history of nicotine dependence